=== PATIENT | male | born 1940 | race Caucasian/White ===

== ENCOUNTER 2018-04-09 08:22 | Outpatient (CLI) | payer OTHER ==
[~2018-04-09 08:22] MED LIST: AVALIDE 300-12.1 TA1 PO; CATAPRES0.1 MG PO; NORVASC2.5 M1 PO; PROTONIX40 MG PO
== END 2018-04-09 08:26 | disposition home or self-care (01) ==
LOC: RX STUDY 08:22
DX: K21.9 Gastro-esophageal reflux disease without esophagitis (principal); R13.19 Other dysphagia

== ENCOUNTER 2018-11-13 08:30 | Inpatient (IN) | payer OTHER ==
[~2018-11-13] VITALS: Ht 162.6 cm; Wt 96.6 kg
[2018-11-13] MEDS ORDERED: TAMS0.4C PO (09:49)
[2018-11-13] MEDS ORDERED: LIPITOR20 MG PO (09:49)
[2018-11-13] MEDS ORDERED: SYMBICORT 80/10.2 GM IH (09:49)
== END 2018-11-19 11:25 | disposition home or self-care (01) | DRG 714 ==
LOC: SURH 11-17 08:30 → O/R 11-17 09:57 → SURH 11-17 11:00
PROVIDERS: ADMIT Urology
PROC: 0VT08ZZ Resection of Prostate, Via Natural or Artificial Opening Endoscopic (ICD-10-PCS; principal; 2018-11-17 11:00)
DX: N40.1 Benign prostatic hyperplasia with lower urinary tract symptoms (principal); R33.8 Other retention of urine; I10 Essential (primary) hypertension; E78.49 Other hyperlipidemia; K21.9 Gastro-esophageal reflux disease without esophagitis

== ENCOUNTER 2018-11-20 20:56 | Emergency (ER) | payer OTHER ==
[~2018-11-20] VITALS: Ht 162.6 cm; Wt 96.6 kg
[~2018-11-20 20:56] MED LIST changes: +LIPITOR20 MG PO; +SYMBICORT 80/10.2 GM IH; +TAMS0.4C PO
== END 2018-11-20 21:53 | disposition home or self-care (01) ==
LOC: ER 20:56
DX: M54.5 Low back pain (principal)